=== PATIENT | male | born 1980 | race Caucasian/White ===

== ENCOUNTER → 2022-12-03 13:42 | Outpatient (CLI) | payer OTHER, SELFPAY ==
--- NOTE | 2022-12-03 13:49 | US_ITS ---
FINAL REPORT CLINICAL HISTORY: STRAIN OF MUSCLE AND TENDON COMPARISON: None FINDINGS: ULTRASOUND RIGHT LOWER LEG: Ultrasound examination of the right calf was performed in the region of clinical abnormality in this patient who reports a muscle strain. There is an anechoic structure measuring 6.8 x 3 cm with smooth margins that most likely represents a posttraumatic seroma or hematoma. No other focal masses identified. IMPRESSION: Anechoic structure in the posterior calf as described, most likely posttraumatic seroma or hematoma. Reviewed, Interpreted and Dictated by John Gonzales MD Transcribed by Danelle Vasquez Authenticated and [facility][1]
== END ==
PROVIDERS: PCP Family Medicine; Visit Provider Plastic Surgery
DX: S86.111A Strain of other muscle(s) and tendon(s) of posterior muscle group at lower leg level, right leg, initial encounter (principal)
CPT/HCPCS: 76882

== ENCOUNTER → 2023-01-03 09:11 | Outpatient (CLI) | payer OTHER, SELFPAY ==
--- NOTE | 2023-01-03 09:14 | XR_ITS ---
FINAL REPORT CLINICAL HISTORY: rt tib fib pain COMPARISON: None FINDINGS: 2 views of the right tibia/fibula were obtained. There is no acute fracture or dislocation. The joint spaces are intact. There is no soft tissue abnormality. IMPRESSION: No acute fracture Reviewed, Interpreted and Dictated by John Gonzales MD Transcribed by Opal Gotti Authenticated and [facility]
== END ==
PROVIDERS: PCP Family Medicine; Visit Provider Orthopaedic Surgery
DX: M79.604 Pain in right leg (principal)
CPT/HCPCS: 73590